=== PATIENT | male | born 1975 | race Caucasian/White ===

== ENCOUNTER 2017-12-04 11:07 | Outpatient (CLI) | payer OTHER, SELFPAY ==
--- NOTE | 2017-12-05 08:46 | ONE_ITS ---
OCCUPATIONAL MEDICINE NOTE DATE OF SERVICE December 04, 2017 [employer] ASSESSMENT Neck pain, improving. Spasm improving. Moderate right carpal tunnel syndrome. PLAN Hold on further assessment for the carpal tunnel for now. Continue to focus on the neck. Feel that he is really making progress with PT. Continue the gabapentin as above. Continue stretches and exercises. Continue TENS unit. This visit was dominated in counseling about diet and diabetes control, as it impacts his pain and potential for further intervention. He says he will give his current conservative treatment 30 days and then he will reassess. I urged him to schedule an appointment with his primary care provider which coincides with his 30 day goal. Encouraged him to consider the possibility of other medications which could be tried, rather than metformin. He agrees to entertain this and in the meantime will continue with his judicious life style changes. Work restrictions per work status form. Followup two weeks. Greater than 50% of this visit was spent in planning and coordination of care. SUBJECTIVE Mr. Kingston returns for followup on neck pain, as well as right upper extremity numbness. Again, he is accompanied by his . They both agree that they are seeing improvement. [facility] and gabapentin was started on the . He was not a candidate for injection through the [facility] as his Hemoglobin A1c was noted to be over 11. He tells me he has not followed up with his primary care provider, but he is excited about lifestyle changes that he is making. His confirms he has improved his diet and he is on a regimen of an [id number] supplement, which is supposed to his overall blood sugars. He is adamant that he cannot take metformin due to side effects. In regard to neck pain, it remains right sided with radiation across the superior trap. He continues to have numbness in the first three digits of the right hand and continues to have an ongoing tremor, which has been evaluated by Neurology. He is working within restrictions, attending PT and he tells me that instrumentation has been used, which is helpful in relieving his spasm, he says it is really getting the knots out. Additionally, he has been giving a band for home exercise program, which he is using and tolerating well. He is using a TENS unit, which he also finds to be very helpful and he has noted improvement in his range of motion, as well his general comfort level. In regard to medications, he is using naproxen 500 mg b.i.d. along with Tylenol 1000 mg t.i.d. He is using gabapentin, which is currently being titrated at the direction of the [facility]. He is tolerating that well. REVIEW OF SYSTEMS Less tired, less pain. No exertional chest pain, cough, wheeze or dyspnea, abdominal pain, nausea, vomiting or GI complaints. PAST MEDICAL HISTORY Sleep apnea, treated with Bi-PAP. Transient left ankle injury. Hypertension. Type 2 diabetes. MEDICATIONS He takes no routine medications. Using the naproxen, Tylenol and gabapentin, as above the gabapentin dose is being titrated. He is about to start two tablets, that would be 600 mg in the morning and 600 mg at night. ALLERGIES None. SOCIAL He is . HABITS He does not smoke. Alcoholic beverages approximately six per week. OBJECTIVE GENERAL - He looks better rested, more calm, less stressed. MUSCULOSKELETAL - No tenderness to direct palpation of the cervical vertebrae. There remains diffuse tenderness across the right superior trap. Mild tenderness in the right lateral paraspinous muscles of the cervical spine. No tenderness in the occipital region. Improved range of motion of head and neck. He is able to fully flex. Extension is lacking about 20 degrees and he does have upper cervical discomfort with that movement. He is able to rotate completely in both directions with minimal discomfort. Ear to shoulder is still uncomfortable in both directions. Full range of motion of the left shoulder. Right shoulder - Flexion of 180 degrees. Abduction of about 120. He is able to push through, but has discomfort for the remainder of that movement. No discomfort at the elbow. Full range of motion at the elbow. Right wrist - Mild tenderness to palpation on the ulnar side. Persistent dysesthesia of the 1st, 2nd and 3rd digits. No pain with resisted flexion/ extension, hand grasps are equal.
== END 2017-12-04 11:08 ==
PROVIDERS: PCP Neuromusculoskeletal Medicine & OMM; Visit Provider Nurse Practitioner Family
DX: M54.2 Cervicalgia (principal); R20.0 Anesthesia of skin; G56.01 Carpal tunnel syndrome, right upper limb
CPT/HCPCS: 99214